=== PATIENT | male | born 1970 | race Caucasian/White ===

== ENCOUNTER 2019-12-17 16:04 | Inpatient (IN) | payer BC ==
[~2019-12-17] VITALS: Ht 187.9 cm; Wt 112.1 kg
[2019-12-17 16:12] VITALS: BP 122/74
[2019-12-17 16:51] LABS: BASO % 0.2 % (0.0-1.0); EOS # 0.1 10*3/uL (0.0-0.4); EOS % 0.7 % (1.0-4.0); HEMATOCRIT 40.6 % (42.0-52.0); LYMPH # 1.3 10*3/uL (1.3-4.4); LYMPH % 8.2 % (27.0-41.0); MEAN CELL VOLUME 89.2 fl (80.0-94.0); MEAN CORPUSCULAR HGB 29.7 pg (27.0-31.0); MEAN CORPUSCULAR HGB CONC 33.3 g/dl (33.0-37.0); MEAN PLATELET VOLUME 9.3 fl (9.6-12.3); MONO # 1.1 10*3/uL (0.1-1.0); MONO % 7.2 % (3.0-9.0); NEUT # 12.7 10*3/uL (2.3-7.9); PLATELET COUNT AUTOMATED 277 10*3/uL (130-400); RED BLOOD COUNT 4.55 10*6/uL (4.50-5.90); RED CELL DISTRI WIDTH 12.9 % (0-14.5); WHITE BLOOD COUNT 15.3 10*3/uL (4.8-10.8)
[2019-12-17 17:05] LABS: ALBUMIN 3.4 gm/dl (3.1-4.5); ALKALINE PHOSPHATASE 82 U/L (45-117); BUN 13 mg/dl (7-24); CHLORIDE 105 mmol/L (98-107); CREATININE 1.03 mg/dL (0.70-1.30); LIPASE 33 U/L (73-393); POTASSIUM 4.2 mmol/L (3.5-5.1); SGOT/AST 6 IU/L (3-35); SGPT/ALT 24 U/L (12-78); SODIUM 136 mmol/L (136-145); TOTAL PROTEIN 7.7 gm/dL (6.4-8.2)
[2019-12-17 21:28] VITALS: BP 129/78
[2019-12-17 23:23] LABS: BILIRUBIN NEGATIVE (NEGATIVE); BLOOD NEGATIVE (NEGATIVE); CLARITY CLEAR (CLEAR); COLOR YELLOW (YELLOW); GLUCOSE NEGATIVE (NEGATIVE); KETONE NEGATIVE (NEGATIVE); LEUKO ESTERASE NEGATIVE (NEGATIVE); NITRITE NEGATIVE (NEGATIVE); SPECIFIC GRAVITY 1.015 (1.005-1.030); UROBILINOGEN 0.2 E.U./dl (0.2-1.0)
[2019-12-17 23:24] LABS: RBC 16-20 rbc/hpf (0-2)
[2019-12-18] VITALS (12 sets, daily range): BP systolic 119–140; BP diastolic 64–83
[2019-12-18 06:12] LABS: BASO % 0.1 % (0.0-1.0); EOS # 0.2 10*3/uL (0.0-0.4); EOS % 1.2 % (1.0-4.0); HEMATOCRIT 36.8 % (42.0-52.0); LYMPH # 1.3 10*3/uL (1.3-4.4); LYMPH % 9.2 % (27.0-41.0); MEAN CORPUSCULAR HGB 29.3 pg (27.0-31.0); MEAN CORPUSCULAR HGB CONC 31.8 g/dl (33.0-37.0); MEAN PLATELET VOLUME 10.6 fl (9.6-12.3); MONO # 1.3 10*3/uL (0.1-1.0); MONO % 9.3 % (3.0-9.0); NEUT # 10.8 10*3/uL (2.3-7.9); NEUT % 79.5 % (47.0-73.0); PLATELET COUNT AUTOMATED 278 10*3/uL (130-400); RED CELL DISTRI WIDTH 13.1 % (0-14.5); WHITE BLOOD COUNT 13.6 10*3/uL (4.8-10.8)
[2019-12-18 06:37] LABS: ALBUMIN 2.9 gm/dl (3.1-4.5); BUN 14 mg/dl (7-24); CHLORIDE 109 mmol/L (98-107); CREATININE 1.05 mg/dL (0.70-1.30); HDL CHOLESTEROL 39 mg/dl (40-60); POTASSIUM 4.2 mmol/L (3.5-5.1); SGOT/AST 6 IU/L (3-35); SGPT/ALT 16 U/L (12-78); SODIUM 140 mmol/L (136-145)
[2019-12-18 06:41] LABS: ALKALINE PHOSPHATASE 63 U/L (45-117); CHOLESTEROL 171 mg/dL (<200); LDL CHOLESTEROL 103 mg/dL (9-159); TOTAL PROTEIN 6.6 gm/dL (6.4-8.2); TRIGLYCERIDES 146 mg/dl (<150); VLDL CHOLESTEROL 29 mg/dL (6-40)
[2019-12-18] MEDS ORDERED: GEMFIBROZIL600 MG PO (10:42)
[2019-12-18] MEDS ORDERED: LISINOPRIL10 M1 PO (10:42)
[2019-12-19] VITALS: BP 130/73
[2019-12-19 06:41] LABS: BASO % 0.3 % (0.0-1.0); EOS % 0.3 % (1.0-4.0); HEMATOCRIT 32.6 % (42.0-52.0); LYMPH # 1.4 10*3/uL (1.3-4.4); LYMPH % 11.7 % (27.0-41.0); MEAN CELL VOLUME 90.3 fl (80.0-94.0); MEAN CORPUSCULAR HGB 29.6 pg (27.0-31.0); MEAN CORPUSCULAR HGB CONC 32.8 g/dl (33.0-37.0); MEAN PLATELET VOLUME 9.8 fl (9.6-12.3); MONO # 0.7 10*3/uL (0.1-1.0); MONO % 5.8 % (3.0-9.0); NEUT # 9.7 10*3/uL (2.3-7.9); PLATELET COUNT AUTOMATED 236 10*3/uL (130-400); RED BLOOD COUNT 3.61 10*6/uL (4.50-5.90); RED CELL DISTRI WIDTH 12.9 % (0-14.5); WHITE BLOOD COUNT 11.9 10*3/uL (4.8-10.8)
[2019-12-19 07:26] LABS: CHLORIDE 104 mmol/L (98-107); POTASSIUM 3.4 mmol/L (3.5-5.1); SODIUM 136 mmol/L (136-145)
[2019-12-19 07:33] LABS: BUN 9 mg/dl (7-24); CREATININE 1.12 mg/dL (0.70-1.30)
[2019-12-19 08:00] VITALS: BP 132/58
[2019-12-19 12:00] VITALS: BP 130/68
[2019-12-19 16:00] VITALS: BP 99/60
[2019-12-19 20:00] VITALS: BP 124/72
[2019-12-20] VITALS: BP 122/72
[2019-12-20 06:46] LABS: BASO % 0.2 % (0.0-1.0); EOS # 0.1 10*3/uL (0.0-0.4); EOS % 1.4 % (1.0-4.0); HEMATOCRIT 30.9 % (42.0-52.0); LYMPH # 1.4 10*3/uL (1.3-4.4); LYMPH % 14.6 % (27.0-41.0); MEAN CELL VOLUME 91.2 fl (80.0-94.0); MEAN CORPUSCULAR HGB 29.2 pg (27.0-31.0); MONO # 0.6 10*3/uL (0.1-1.0); MONO % 6.4 % (3.0-9.0); NEUT # 7.4 10*3/uL (2.3-7.9); NEUT % 76.3 % (47.0-73.0); PLATELET COUNT AUTOMATED 256 10*3/uL (130-400); RED BLOOD COUNT 3.39 10*6/uL (4.50-5.90); WHITE BLOOD COUNT 9.7 10*3/uL (4.8-10.8)
[2019-12-20 06:56] LABS: BUN 10 mg/dl (7-24); CHLORIDE 104 mmol/L (98-107); POTASSIUM 3.6 mmol/L (3.5-5.1); SODIUM 137 mmol/L (136-145)
[2019-12-20 06:58] LABS: CREATININE 0.98 mg/dL (0.70-1.30)
[2019-12-20 08:00] VITALS: BP 105/60
[2019-12-20] MEDS ORDERED: HYDROCODONE-AC1 EAC1 PO (10:44)
[2019-12-20] MEDS ORDERED: AUGMENTIN 875-875 MG PO (10:44)
[2019-12-20] MEDS ORDERED: D3-200050 MCG PO (10:45)
== END 2019-12-20 11:20 | disposition home or self-care (01) | DRG 871 ==
LOC: ED 16:04 → EDHOLD 18:53 → 4E 18:53
PROVIDERS: Family Medicine; Internal Medicine; Physician Assistant; Student in an Organized Health Care Education/Training Program; ADMIT Emergency Medicine
PROC: 0D9J3ZZ Drainage of Appendix, Percutaneous Approach (ICD-10-PCS; principal; 2019-12-18)
DX: A41.9 Sepsis, unspecified organism (principal); K35.33 Acute appendicitis with perforation, localized peritonitis, and gangrene, with abscess; E44.0 Moderate protein-calorie malnutrition; D64.9 Anemia, unspecified; E87.8 Other disorders of electrolyte and fluid balance, not elsewhere classified; R73.9 Hyperglycemia, unspecified; D72.821 Monocytosis (symptomatic); E55.9 Vitamin D deficiency, unspecified; I10 Essential (primary) hypertension; E78.1 Pure hyperglyceridemia; Z83.3 Family history of diabetes mellitus; Z80.8 Family history of malignant neoplasm of other organs or systems; Z68.31 Body mass index [BMI] 31.0-31.9, adult

== ENCOUNTER 2019-12-22 10:24 | Inpatient (IN) | payer BC ==
[~2019-12-22] VITALS: Ht 188 cm; Wt 108.4 kg
[~2019-12-22 10:24] MED LIST: AUGMENTIN 875-875 MG PO; D3-200050 MCG PO; GEMFIBROZIL600 MG PO; HYDROCODONE-AC1 EAC1 PO; LISINOPRIL10 M1 PO
[2019-12-22 10:37] VITALS: BP 141/75
[2019-12-22 11:37] LABS: BASO % 0.5 % (0.0-1.0); EOS # 0.2 10*3/uL (0.0-0.4); HEMATOCRIT 32.9 % (42.0-52.0); LYMPH # 1.5 10*3/uL (1.3-4.4); MEAN CELL VOLUME 90.1 fl (80.0-94.0); MEAN CORPUSCULAR HGB CONC 32.2 g/dl (33.0-37.0); MEAN PLATELET VOLUME 9.2 fl (9.6-12.3); MONO # 0.5 10*3/uL (0.1-1.0); MONO % 7.8 % (3.0-9.0); NEUT # 4.4 10*3/uL (2.3-7.9); NEUT % 65.5 % (47.0-73.0); PLATELET COUNT AUTOMATED 387 10*3/uL (130-400); RED BLOOD COUNT 3.65 10*6/uL (4.50-5.90); RED CELL DISTRI WIDTH 13.2 % (0-14.5); WHITE BLOOD COUNT 6.7 10*3/uL (4.8-10.8)
[2019-12-22 11:51] LABS: ALBUMIN 2.8 gm/dl (3.1-4.5); ALKALINE PHOSPHATASE 58 U/L (45-117); BUN 14 mg/dl (7-24); CHLORIDE 108 mmol/L (98-107); CREATININE 0.93 mg/dL (0.70-1.30); SGOT/AST 37 IU/L (3-35); SGPT/ALT 81 U/L (12-78); SODIUM 141 mmol/L (136-145); TOTAL PROTEIN 7.1 gm/dL (6.4-8.2)
[2019-12-22 13:12] VITALS: BP 135/75
--- NOTE | 2019-12-22 13:18 | NUR ---
PT HAS CELLULITIS ON FLANK AREA. AREA IS INTACT. UPON CONSULTED WITH OTHER RNS AND NO PHOTO WAS TAKEN. PT ALSO HAS A BUTCH DRAIN THAT WAS PLACED 12/18/19. NO PHOTO TAKEN D/T SURGICAL SITE/DRESSING.
[2019-12-22 13:35] VITALS: BP 131/77
--- NOTE | 2019-12-22 13:41 | NUR ---
Time: 1339 A 49 year old MALE admitted to 5E under services of AIDAN PEREZ DO. Pt. arrived via wheel chair from ER. Chief complaint: ABDOMINAL CELLULITIS. ELENA XIE
--- NOTE | 2019-12-22 14:28 | NUR ---
PT REFUSES FOR DRESSING AROUND BUTCH DRAIN TO BE REMOVED FOR WOUND CULTURE TO BE COMPLETED AT THIS TIME. PT DOES NOT WANT PHOTOS TAKEN OF RED AREA ON ABDOMEN AT THIS TIME.
--- NOTE | 2019-12-22 14:32 | NUR ---
DR. GRANADOS AWARE OF CONSULT, WILL SEE PATIENT TOMORROW. NO NEW ORDERS AT THIS TIME
--- NOTE | 2019-12-22 15:10 | NUR ---
DR. SERRANO AWARE THAT UNABLE TO DO WOUND CULTURE AT THIS TIME DUE TO CELLULITIS BEING CLOSED, DRAIN DRESSING UNABLE TO BE REMOVED, REFUSED BY PATIENT AT THIS TIME.
[2019-12-22 16:00] VITALS: BP 120/79
--- NOTE | 2019-12-22 19:10 | NUR ---
REPORT RECEIVED FROM ELENA HILL. PT LYING IN BED AT THIS TIME. NO COMPLAINTS VOICED, CALL LIGHT IN REACH
[2019-12-22 20:00] VITALS: BP 119/69
--- NOTE | 2019-12-22 21:00 | NUR ---
PT WATCHING TV. NO COMPLAINTS, CALL LIGHT IN REACH
--- NOTE | 2019-12-22 23:00 | NUR ---
PT WATCHING TV. KEYS RETREIVED FROM CAR BY SECURITY AND RETURNED TO PT PER PT REQUEST. NO OTHER COMPLAINTS AT THIS TIME.
[2019-12-23] VITALS: BP 111/69
--- NOTE | 2019-12-23 04:27 | NUR ---
PT ASLEEP AT THIS TIME
[2019-12-23 06:08] LABS: BASO % 0.6 % (0.0-1.0); EOS # 0.2 10*3/uL (0.0-0.4); EOS % 3.5 % (1.0-4.0); HEMATOCRIT 32.6 % (42.0-52.0); LYMPH # 1.5 10*3/uL (1.3-4.4); LYMPH % 22.5 % (27.0-41.0); MEAN CELL VOLUME 91.6 fl (80.0-94.0); MEAN CORPUSCULAR HGB 29.8 pg (27.0-31.0); MEAN CORPUSCULAR HGB CONC 32.5 g/dl (33.0-37.0); MEAN PLATELET VOLUME 9.6 fl (9.6-12.3); MONO # 0.6 10*3/uL (0.1-1.0); MONO % 8.5 % (3.0-9.0); NEUT # 4.4 10*3/uL (2.3-7.9); NEUT % 63.7 % (47.0-73.0); PLATELET COUNT AUTOMATED 377 10*3/uL (130-400); RED BLOOD COUNT 3.56 10*6/uL (4.50-5.90); RED CELL DISTRI WIDTH 13.2 % (0-14.5); WHITE BLOOD COUNT 6.8 10*3/uL (4.8-10.8)
[2019-12-23 06:26] LABS: ALBUMIN 2.5 gm/dl (3.1-4.5); BUN 13 mg/dl (7-24); CHLORIDE 108 mmol/L (98-107); POTASSIUM 4.3 mmol/L (3.5-5.1); SODIUM 141 mmol/L (136-145)
[2019-12-23 06:30] LABS: ALKALINE PHOSPHATASE 62 U/L (45-117); CREATININE 0.85 mg/dL (0.70-1.30); SGOT/AST 23 IU/L (3-35); SGPT/ALT 62 U/L (12-78); TOTAL PROTEIN 6.9 gm/dL (6.4-8.2)
[2019-12-23 08:00] VITALS: BP 110/64
--- NOTE | 2019-12-23 11:08 | NUR ---
PT AWAKE, ALERT AND ORIENTED. NO STATED COMPLAINTS. DENIES ANY PAIN AT THIS TIME. PT IS PLEASANT AND COOPERATIVE. RESPIRATIONS ARE EASY AND REGULAR. NO SOB NOTED. ROOM AIR. BED IN LOWEST LOCKED POSITION AND CALL LIGHT WITHIN REACH. WILL CONTINUE TO MONITOR.
[2019-12-23 12:00] VITALS: BP 115/58
--- NOTE | 2019-12-23 12:39 | NUR ---
Auto Wheel Alignment Specialist in to talk to patient. Patient states lives at HOME with ROOM MATE. There are FEW steps in the home. Physician: NONE HERE IN [place] Pharmacy: [facility] Home health services: NONE Patient's level of ADLs: INDEPENDENT Patient has working utilities: YES DME: NONE Follow-up physician's appointment after d/c: DOES NOT HAVE PCP IN [place] Does patient want to access PORTAL?: NO Discharge plan PT LIVES IN [place] AND IS HERE WORKING. PT STATES HE IS INDEPENDENT IN HIS CARE. DISCUSSED HOME NEEDS WITH PT BUT HE DECLINES AT THIS TIME. WILL CONTINUE TO FOLLOW. PLAN IS TO RETURN HOME WITH ROOM MATE ON DISCHARGE. STATES HE WILL HAVE A RIDE HOME.. MORENO BUENO
[2019-12-23 16:00] VITALS: BP 122/74
[2019-12-23 20:00] VITALS: BP 121/78
[2019-12-24] VITALS: BP 118/78
--- NOTE | 2019-12-24 01:00 | NUR ---
IV started left forearm with #22 protective cath after 0 attempts. Site prepped with Chloroprep. Sterile dressing applied. Patient tolerated procedure well VERNON VAZQUEZ
[2019-12-24 06:44] LABS: BASO % 0.7 % (0.0-1.0); EOS # 0.2 10*3/uL (0.0-0.4); EOS % 3.3 % (1.0-4.0); HEMATOCRIT 33.7 % (42.0-52.0); LYMPH # 1.6 10*3/uL (1.3-4.4); LYMPH % 26.3 % (27.0-41.0); MEAN CELL VOLUME 89.6 fl (80.0-94.0); MEAN CORPUSCULAR HGB CONC 32.3 g/dl (33.0-37.0); MEAN PLATELET VOLUME 9.5 fl (9.6-12.3); MONO # 0.5 10*3/uL (0.1-1.0); MONO % 8.3 % (3.0-9.0); NEUT # 3.5 10*3/uL (2.3-7.9); NEUT % 58.9 % (47.0-73.0); PLATELET COUNT AUTOMATED 419 10*3/uL (130-400); RED BLOOD COUNT 3.76 10*6/uL (4.50-5.90); RED CELL DISTRI WIDTH 13.1 % (0-14.5)
--- NOTE | 2019-12-24 07:03 | NUR ---
PATIENT EMPTIES DRAIN HIMSELF. 25 CC OUTPUT OF GREEN DRAINAGE THIS AM
[2019-12-24 07:12] LABS: ALBUMIN 2.6 gm/dl (3.1-4.5); ALKALINE PHOSPHATASE 65 U/L (45-117); BUN 12 mg/dl (7-24); CHLORIDE 110 mmol/L (98-107); CREATININE 0.85 mg/dL (0.70-1.30); POTASSIUM 4.1 mmol/L (3.5-5.1); SGOT/AST 16 IU/L (3-35); SGPT/ALT 51 U/L (12-78); SODIUM 139 mmol/L (136-145)
[2019-12-24 07:14] LABS: TOTAL PROTEIN 6.7 gm/dL (6.4-8.2)
[2019-12-24 08:00] VITALS: BP 118/78
--- NOTE | 2019-12-24 10:22 | NUR ---
IN TO ROOM. PATIENT SITTING UP IN BED. NO STATED COMPLAINTS AT THIS TIME. PT IS PLEASANT AND COOPERATIVE WITH CARE. RESPIRATIONS ARE EASY AND REGULAR. ABLE TO REPOSITION SELF AMD ENCOURAGED TO DO SO. NO SOB OR DISTRESS NOTED. BED IN LOWEST LOCKED POSITON AND CALL LIGHT WITHIN REACH.
[2019-12-24] MEDS ORDERED: DOXYCYCLINE100 M3 PO (10:52)
--- NOTE | 2019-12-24 11:50 | NUR ---
Discharge instructions reviewed with patient/family. Patient receptive and verbalizes understanding. Follow-up care arranged. Written instructions given to patient/family. ANATOLY WOLFE
== END 2019-12-24 11:50 | disposition home or self-care (01) | DRG 862 ==
LOC: ED 10:24 → 5E 12:36 → EDHOLD 12:36 → 5E 12:51
PROVIDERS: Internal Medicine; Nurse Practitioner Family; Student in an Organized Health Care Education/Training Program; ADMIT Emergency Medicine
DX: T81.40XA Infection following a procedure, unspecified, initial encounter (principal); K35.33 Acute appendicitis with perforation, localized peritonitis, and gangrene, with abscess; L03.311 Cellulitis of abdominal wall; E44.0 Moderate protein-calorie malnutrition; R74.0 Nonspecific elevation of levels of transaminase and lactic acid dehydrogenase [LDH]; R73.9 Hyperglycemia, unspecified; D64.9 Anemia, unspecified; E87.8 Other disorders of electrolyte and fluid balance, not elsewhere classified; E55.9 Vitamin D deficiency, unspecified; I10 Essential (primary) hypertension; E78.1 Pure hyperglyceridemia; Y83.8 Other surgical procedures as the cause of abnormal reaction of the patient, or of later complication, without mention of misadventure at the time of the procedure; Z83.3 Family history of diabetes mellitus; Z80.8 Family history of malignant neoplasm of other organs or systems; Z68.31 Body mass index [BMI] 31.0-31.9, adult; Y92.89 Other specified places as the place of occurrence of the external cause

== ENCOUNTER → 2020-01-05 | Outpatient (CLI) | payer BC ==
[~2020-01-05] MED LIST changes: +DOXYCYCLINE100 M3 PO
== END | disposition home or self-care (01) ==
LOC: CT 08:44
DX: K76.0 Fatty (change of) liver, not elsewhere classified (principal); K42.9 Umbilical hernia without obstruction or gangrene

== ENCOUNTER 2020-02-19 10:28 | Emergency (ER) | payer BC ==
[~2020-02-19] VITALS: Ht 187.9 cm; Wt 113.4 kg
[2020-02-19 11:16] LABS: BILIRUBIN NEGATIVE; BLOOD NEGATIVE (NEGATIVE); CLARITY CLEAR (CLEAR); COLOR YELLOW (YELLOW); GLUCOSE NEGATIVE; KETONE NEGATIVE; LEUKO ESTERASE NEGATIVE (NEGATIVE); NITRITE NEGATIVE (NEGATIVE); UROBILINOGEN 0.2 E.U./dl (0.0-1.0)
[2020-02-19 11:18] LABS: BASO % 0.3 % (0.0-1.0); EOS # 0.3 10*3/uL (0.0-0.4); EOS % 2.4 % (1.0-4.0); HEMATOCRIT 39.7 % (42.0-52.0); LYMPH # 1.8 10*3/uL (1.3-4.4); LYMPH % 16.3 % (27.0-41.0); MEAN CELL VOLUME 89.4 fl (80.0-94.0); MEAN CORPUSCULAR HGB 29.3 pg (27.0-31.0); MEAN CORPUSCULAR HGB CONC 32.7 g/dl (33.0-37.0); MEAN PLATELET VOLUME 9.5 fl (9.6-12.3); MONO # 0.9 10*3/uL (0.1-1.0); MONO % 8.3 % (3.0-9.0); NEUT # 7.8 10*3/uL (2.3-7.9); NEUT % 71.9 % (47.0-73.0); PLATELET COUNT AUTOMATED 223 10*3/uL (130-400); RED BLOOD COUNT 4.44 10*6/uL (4.50-5.90); RED CELL DISTRI WIDTH 13.4 % (0-14.5); WHITE BLOOD COUNT 10.9 10*3/uL (4.8-10.8)
[2020-02-19 11:23] LABS: BACTERIA TRACE; EPITHELIAL CELLS 0-2; MUCOUS 1+; RBC 0-2 rbc/hpf (0-2); WBC 0-2 wbc/hpf (0-5)
[2020-02-19 11:34] LABS: ALBUMIN 3.9 gm/dl (3.1-4.5); ALKALINE PHOSPHATASE 67 U/L (45-117); BUN 14 mg/dl (7-24); CHLORIDE 103 mmol/L (98-107); LIPASE 47 U/L (73-393); SGOT/AST 10 IU/L (3-35); SGPT/ALT 25 U/L (12-78); SODIUM 135 mmol/L (136-145); TOTAL PROTEIN 8.1 gm/dL (6.4-8.2)
[2020-02-19] MEDS ORDERED: FLAGYL500 MG PO (13:49)
[2020-02-19] MEDS ORDERED: LEVOFLOXACIN500 MG PO (13:49)
[2020-02-19] MEDS ORDERED: NORCO 5-325 TA1 EACH PO (13:49)
== END 2020-02-19 14:16 | disposition home or self-care (01) ==
LOC: ED 10:28
PROVIDERS: Nurse Practitioner Family
DX: L02.211 Cutaneous abscess of abdominal wall (principal); Z79.899 Other long term (current) drug therapy